=== PATIENT | male | born 1995 | race Caucasian/White ===

== ENCOUNTER 2018-04-29 17:00 | Emergency (ER) | payer MEDICAID, OTHER ==
[2018-04-29] MEDS: KETOROLAC 30 MG INJ IM (18:13)
== END 2018-04-29 19:37 | disposition home or self-care (01) ==
LOC: FTE 17:00
DX: M79.602 Pain in left arm (principal); F17.210 Nicotine dependence, cigarettes, uncomplicated
CPT/HCPCS: 73080; 73080-LT; 96372; 99284-25

== ENCOUNTER 2018-10-14 12:58 | Emergency (ER) | payer SELFPAY, MEDICAID ==
[2018-10-14] MEDS: KETOROLAC 30 MG INJ IM (14:23)
== END 2018-10-14 15:26 | disposition home or self-care (01) ==
LOC: FTE 15:26
DX: S39.012A Strain of muscle, fascia and tendon of lower back, initial encounter (principal); X50.0XXA Overexertion from strenuous movement or load, initial encounter; Y92.89 Other specified places as the place of occurrence of the external cause; Z87.891 Personal history of nicotine dependence
CPT/HCPCS: 96372; 99284-25